=== PATIENT | male | born 1970 | race African-American/Black ===

== ENCOUNTER 2021-02-07 10:58 | Inpatient (IN) | payer OTHER ==
[2021-02-07 12:09] VITALS: BMI 29.1
[2021-02-07] MEDS ORDERED: ONDANSETRON *ODT* 4 MG TABLET SL PRN (14:22)
[2021-02-07] MEDS ORDERED: MAGNESIUM CITRATE 300 ML BOTTLE PO PRN (14:22)
[2021-02-07] MEDS ORDERED: ACETAMINOPHEN 325 MG TABLET (FP) PO PRN (14:22)
[2021-02-07] MEDS ORDERED: MENTHOL/PHENOL 1 EACH UD MM PRN (14:22)
[2021-02-07] MEDS ORDERED: IBUPROFEN 400 MG TABLET (FP) PO PRN (14:22)
[2021-02-07] MEDS ORDERED: METHADONE HCL 10 MG TABLET (FOR DETOX USE ONLY) PO ONE (14:22)
[2021-02-07] MEDS ORDERED: NICOTINE POLACRILEX 2 MG GUM BUC PRN (14:22)
[2021-02-07] MEDS ORDERED: BISMUTH SUBSALICYLATE 262 MG/15 ML BTL PO PRN (14:22)
[2021-02-07] MEDS ORDERED: MAG HYDROX/AL HYDROX/SIMETH 30 ML UNIT-DOSE CUP PO PRN (14:22)
[2021-02-07] MEDS ORDERED: NALOXONE (NARCAN) HCL 4 MG/0.1 ML SPRAY NS PRN (14:22)
[2021-02-07] MEDS ORDERED: MAGNESIUM HYDROX 2400MG/30ML ORAL SUSPENSION 30 ML CUP PO PRN (14:22)
[2021-02-07 15:26] LABS: HEMATOCRIT 41.1 % (35.4-49); HEMOGLOBIN 13.6 GM/dL (11.7-16.9); MCH 31.2 pg (25.7-33.7); MCHC 33.1 g/dl (32.0-35.9); MEAN CELL VOLUME 94.3 fl (80-96); MEAN PLT VOLUME 8.7 fl (7.5-11.1); PLATELET COUNT 269 K/MM3 (134-434); RBC 4.35 M/mm3 (4.00-5.60); RDW 13.3 % (11.9-15.9); WHITE BLOOD COUNT 5.7 K/mm3 (4.0-10.0)
[2021-02-07 15:29] LABS: POTASSIUM 3.7 mmol/L (3.5-5.1)
[2021-02-07 15:30] LABS: CALCIUM 9.5 mg/dL (8.5-10.1)
[2021-02-07 15:31] LABS: ALBUMIN 4.2 g/dl (3.4-5.0); BLOOD UREA NITROGEN 18.2 mg/dL (7-18)
[2021-02-07 15:34] LABS: CREATININE 1.4 mg/dL (0.55-1.3)
[2021-02-07 15:36] LABS: BILIRUBIN,TOTAL 0.8 mg/dL (0.2-1); TOT PROT 7.9 g/dl (6.4-8.2)
[2021-02-07] MEDS: METHOCARBAMOL 500 MG TABLET PO PRN (15:39)
[2021-02-07] MEDS: cloNIDine HCL 0.1 MG TABLET PO PRN (15:39)
[2021-02-07] MEDS: PRENATAL VITAMINS W/ FOLIC ACID TABLET (FP) PO SCH (15:41)
[2021-02-07] MEDS: NICOTINE 21 MG/24 HOURS TOPICAL PATCH TD SCH (15:41)
[2021-02-07] MEDS: hydrOXYzine PAMOATE 25 MG CAPSULE (FP) PO SCH ×2 (18:07→22:27)
[2021-02-07] MEDS: MELATONIN 5 MG TABLETS PO SCH (22:27)
[2021-02-07] MEDS: THIAMINE HCL 100 MG TABLET (FP) PO SCH (22:27)
[2021-02-08] MEDS: hydrOXYzine PAMOATE 25 MG CAPSULE (FP) PO SCH ×5 (06:29→22:17)
[2021-02-08] MEDS ORDERED: METHADONE HCL 10 MG TABLET (FOR DETOX USE ONLY) ONE ×2 (08:49→09:54)
[2021-02-08] MEDS ORDERED: METHADONE HCL 5 MG TABLET (FOR DETOX USE ONLY) ONE ×2 (08:50→09:54)
[2021-02-08] MEDS: HYDROCHLOROTHIAZIDE 25 MG TABLET (FP) PO SCH (09:49)
[2021-02-08] MEDS: NIFEdipine E.R 60 MG TABLET PO SCH (09:49)
[2021-02-08] MEDS: ASPIRIN 81 MG CHEWABLE TABLETS PO SCH (09:49)
[2021-02-08] MEDS: NICOTINE 21 MG/24 HOURS TOPICAL PATCH TD SCH (09:49)
[2021-02-08] MEDS: PRENATAL VITAMINS W/ FOLIC ACID TABLET (FP) PO SCH (09:49)
[2021-02-08] MEDS ORDERED: METHADONE (DETOX) 20 MG, METHADONE (DETOX) 5 MG PO ONE (10:00)
[2021-02-08] MEDS: cloNIDine HCL 0.1 MG TABLET PO PRN (17:54)
[2021-02-08] MEDS: THIAMINE HCL 100 MG TABLET (FP) PO SCH (22:17)
[2021-02-08] MEDS: METHOCARBAMOL 500 MG TABLET PO PRN (22:17)
[2021-02-08] MEDS: MELATONIN 5 MG TABLETS PO SCH (22:17)
[2021-02-09] MEDS: hydrOXYzine PAMOATE 25 MG CAPSULE (FP) PO SCH ×5 (05:26→22:20)
[2021-02-09] MEDS ORDERED: METHADONE HCL 10 MG TABLET (FOR DETOX USE ONLY) PO ONE (10:00)
[2021-02-09] MEDS: ASPIRIN 81 MG CHEWABLE TABLETS PO SCH (10:14)
[2021-02-09] MEDS: HYDROCHLOROTHIAZIDE 25 MG TABLET (FP) PO SCH (10:14)
[2021-02-09] MEDS: NIFEdipine E.R 60 MG TABLET PO SCH (10:14)
[2021-02-09] MEDS: NICOTINE 21 MG/24 HOURS TOPICAL PATCH TD SCH (10:17)
[2021-02-09] MEDS: PRENATAL VITAMINS W/ FOLIC ACID TABLET (FP) PO SCH (11:31)
[2021-02-09] MEDS: THIAMINE HCL 100 MG TABLET (FP) PO SCH (22:19)
[2021-02-09] MEDS: MELATONIN 5 MG TABLETS PO SCH (22:20)
[2021-02-09] MEDS: cloNIDine HCL 0.1 MG TABLET PO PRN (22:21)
[2021-02-09] MEDS: METHOCARBAMOL 500 MG TABLET PO PRN (22:21)
[2021-02-10] MEDS: hydrOXYzine PAMOATE 25 MG CAPSULE (FP) PO SCH ×5 (05:57→22:15)
[2021-02-10 07:11] LABS: SARS-CoV-2 NAA Not Detected (Not Detected)
[2021-02-10] MEDS ORDERED: METHADONE HCL 5 MG TABLET (FOR DETOX USE ONLY) ONE (08:29)
[2021-02-10] MEDS ORDERED: METHADONE HCL 10 MG TABLET (FOR DETOX USE ONLY) ONE (08:29)
[2021-02-10] MEDS ORDERED: METHADONE (DETOX) 10 MG, METHADONE (DETOX) 5 MG PO ONE (10:00)
[2021-02-10] MEDS: HYDROCHLOROTHIAZIDE 25 MG TABLET (FP) PO SCH (10:15)
[2021-02-10] MEDS: NICOTINE 21 MG/24 HOURS TOPICAL PATCH TD SCH (10:15)
[2021-02-10] MEDS: ASPIRIN 81 MG CHEWABLE TABLETS PO SCH (10:15)
[2021-02-10] MEDS: NIFEdipine E.R 60 MG TABLET PO SCH (10:15)
[2021-02-10] MEDS: PRENATAL VITAMINS W/ FOLIC ACID TABLET (FP) PO SCH (10:15)
[2021-02-10] MEDS: MELATONIN 5 MG TABLETS PO SCH (22:15)
[2021-02-10] MEDS: THIAMINE HCL 100 MG TABLET (FP) PO SCH (22:15)
[2021-02-10] MEDS: METHOCARBAMOL 500 MG TABLET PO PRN (22:16)
[2021-02-11] MEDS: hydrOXYzine PAMOATE 25 MG CAPSULE (FP) PO SCH ×5 (07:09→21:37)
[2021-02-11] MEDS: PRENATAL VITAMINS W/ FOLIC ACID TABLET (FP) PO SCH (09:51)
[2021-02-11] MEDS: HYDROCHLOROTHIAZIDE 25 MG TABLET (FP) PO SCH (09:51)
[2021-02-11] MEDS: ASPIRIN 81 MG CHEWABLE TABLETS PO SCH (09:51)
[2021-02-11] MEDS: METHOCARBAMOL 500 MG TABLET PO PRN ×2 (09:51→21:37)
[2021-02-11] MEDS: NICOTINE 21 MG/24 HOURS TOPICAL PATCH TD SCH (09:52)
[2021-02-11] MEDS: NIFEdipine E.R 60 MG TABLET PO SCH (09:52)
[2021-02-11] MEDS ORDERED: METHADONE HCL 10 MG TABLET (FOR DETOX USE ONLY) PO ONE (10:00)
[2021-02-11] MEDS: MELATONIN 5 MG TABLETS PO SCH (21:36)
[2021-02-11] MEDS: THIAMINE HCL 100 MG TABLET (FP) PO SCH (21:37)
[2021-02-11] MEDS: ACETAMINOPHEN 325 MG TABLET (FP) PO PRN (21:38)
[2021-02-12] MEDS: hydrOXYzine PAMOATE 25 MG CAPSULE (FP) PO SCH ×3 (05:26→14:16)
[2021-02-12] MEDS ORDERED: METHADONE HCL 5 MG TABLET (FOR DETOX USE ONLY) PO ONE (06:00)
[2021-02-12] MEDS: ACETAMINOPHEN 325 MG TABLET (FP) PO PRN (09:39)
[2021-02-12] MEDS: PRENATAL VITAMINS W/ FOLIC ACID TABLET (FP) PO SCH (10:07)
[2021-02-12] MEDS: HYDROCHLOROTHIAZIDE 25 MG TABLET (FP) PO SCH (10:07)
[2021-02-12] MEDS: NICOTINE 21 MG/24 HOURS TOPICAL PATCH TD SCH (10:07)
[2021-02-12] MEDS: ASPIRIN 81 MG CHEWABLE TABLETS PO SCH (10:07)
[2021-02-12] MEDS: NIFEdipine E.R 60 MG TABLET PO SCH (10:07)
[2021-02-12 12:38] VITALS: BP 130/82; PULSE 62; TEMP 97.1
== END 2021-02-12 14:00 | disposition other institution (70) | DRG 773 ==
LOC: YASAS 10:58 → Y3N 14:14
PROVIDERS: ADMIT Allergy & Immunology; ATTEND Allergy & Immunology
PROC: HZ2ZZZZ Detoxification Services for Substance Abuse Treatment (ICD-10-PCS; principal; 2021-02-07)
DX: F11.23 Opioid dependence with withdrawal (principal); F14.20 Cocaine dependence, uncomplicated; F10.10 Alcohol abuse, uncomplicated; F17.210 Nicotine dependence, cigarettes, uncomplicated; F41.8 Other specified anxiety disorders; F32.9 Major depressive disorder, single episode, unspecified; I10 Essential (primary) hypertension; Z98.890 Other specified postprocedural states
CPT/HCPCS: 36415; 80053; 85027; 86780; 93005; 93010; C9803; J0735; U0003; U0005

== ENCOUNTER 2022-03-08 12:57 | Inpatient (IN) | payer OTHER ==
[2022-03-08 15:36] VITALS: BMI 28.8
[2022-03-08] MEDS ORDERED: DICYCLOMINE HCL 10 MG CAPSULE PO PRN (20:22)
[2022-03-08] MEDS ORDERED: BISMUTH SUBSALICYLATE 524 MG/30 ML PO PRN (20:22)
[2022-03-08] MEDS ORDERED: MAGNESIUM CITRATE 300 ML BOTTLE PO PRN (20:22)
[2022-03-08] MEDS ORDERED: LOPERAMIDE HCL 2 MG CAPSULE PO PRN (20:22)
[2022-03-08] MEDS ORDERED: methaDONE HCL 10 MG TABLET (FOR DETOX USE ONLY) PO ONE (20:22)
[2022-03-08] MEDS ORDERED: ONDANSETRON *ODT* 4 MG TABLET SL PRN (20:22)
[2022-03-08] MEDS ORDERED: cloNIDine HCL 0.1 MG TABLET PO PRN (20:22)
[2022-03-08] MEDS ORDERED: MAGNESIUM HYDROX 2400MG/30ML ORAL SUSPENSION 30 ML CUP PO PRN (20:22)
[2022-03-08] MEDS ORDERED: IBUPROFEN 400 MG TABLET (FP) PO PRN (20:22)
[2022-03-08] MEDS ORDERED: ACETAMINOPHEN 325 MG TABLET (FP) PO PRN ×2 (20:22)
[2022-03-08] MEDS ORDERED: MAG HYDROX/AL HYDROX/SIMETH 30 ML UNIT-DOSE CUP PO PRN (20:22)
[2022-03-08] MEDS ORDERED: hydrOXYzine PAMOATE 25 MG CAPSULE (FP) PO PRN (20:22)
[2022-03-08] MEDS ORDERED: BENZOCAINE/MENTHOL (CHLORASEPTIC ) LOZENGE MM PRN (20:22)
[2022-03-08] MEDS ORDERED: clonazePAM 0.5 MG ODT TABLETS SL PRN (20:24)
[2022-03-08] MEDS ORDERED: NICOTINE POLACRILEX 4 MG GUM BUC PRN (20:24)
[2022-03-08] MEDS ORDERED: MELATONIN 5 MG TABLETS PO PRN (20:24)
[2022-03-08] MEDS: METHOCARBAMOL 500 MG TABLET PO PRN (22:57)
[2022-03-08] MEDS: THIAMINE HCL 100 MG TABLET (FP) PO SCH (22:57)
[2022-03-09] MEDS ORDERED: methaDONE HCL 10 MG TABLET (FOR DETOX USE ONLY) ONE (09:35)
[2022-03-09] MEDS: PRENATAL VITAMINS W/ FOLIC ACID TABLET (FP) PO SCH (10:06)
[2022-03-09] MEDS: ASPIRIN 81 MG CHEWABLE TABLETS PO SCH (10:06)
[2022-03-09] MEDS: HYDROCHLOROTHIAZIDE 25 MG TABLET (FP) PO SCH (10:06)
[2022-03-09] MEDS: NIFEdipine E.R 60 MG TABLET PO SCH (12:20)
[2022-03-09 12:31] LABS: HEMATOCRIT 40.4 % (35.4-49); HEMOGLOBIN 12.9 GM/dL (11.7-16.9); MCH 29.9 pg (25.7-33.7); MCHC 31.8 g/dl (32.0-35.9); MEAN CELL VOLUME 93.9 fl (80-96); MEAN PLT VOLUME 8.4 fl (7.5-11.1); PLATELET COUNT 271 10^3/uL (134-434); RDW 12.7 % (11.9-15.9); WHITE BLOOD COUNT 5.3 K/mm3 (4.0-10.0)
[2022-03-09 13:20] LABS: CALCIUM 8.7 mg/dL (8.5-10.1)
[2022-03-09 13:21] LABS: ALBUMIN 3.2 g/dl (3.4-5.0)
[2022-03-09 13:24] LABS: BLOOD UREA NITROGEN 14.1 mg/dL (7-18)
[2022-03-09 13:25] LABS: BILIRUBIN,TOTAL 0.5 mg/dL (0.2-1)
[2022-03-09] MEDS: THIAMINE HCL 100 MG TABLET (FP) PO SCH (22:32)
[2022-03-10] MEDS ORDERED: methaDONE HCL 10 MG TABLET (FOR DETOX USE ONLY) PO ONE (10:00)
[2022-03-10] MEDS: HYDROCHLOROTHIAZIDE 25 MG TABLET (FP) PO SCH (10:31)
[2022-03-10] MEDS: PRENATAL VITAMINS W/ FOLIC ACID TABLET (FP) PO SCH (10:31)
[2022-03-10] MEDS: ASPIRIN 81 MG CHEWABLE TABLETS PO SCH (10:31)
[2022-03-10] MEDS: NIFEdipine E.R 60 MG TABLET PO SCH (10:31)
[2022-03-10 16:08] LABS: SARS-CoV-2 NAA Not Detected (Not Detected)
[2022-03-10] MEDS: THIAMINE HCL 100 MG TABLET (FP) PO SCH (22:47)
[2022-03-11] MEDS ORDERED: methaDONE HCL 10 MG TABLET (FOR DETOX USE ONLY) ONE (09:16)
[2022-03-11] MEDS: ASPIRIN 81 MG CHEWABLE TABLETS PO SCH (10:20)
[2022-03-11] MEDS: PRENATAL VITAMINS W/ FOLIC ACID TABLET (FP) PO SCH (10:20)
[2022-03-11] MEDS: HYDROCHLOROTHIAZIDE 25 MG TABLET (FP) PO SCH (10:20)
[2022-03-11] MEDS: NIFEdipine E.R 60 MG TABLET PO SCH (10:20)
[2022-03-11] MEDS: THIAMINE HCL 100 MG TABLET (FP) PO SCH (22:00)
[2022-03-11] MEDS: METHOCARBAMOL 500 MG TABLET PO PRN (22:02)
[2022-03-12] MEDS ORDERED: methaDONE HCL 10 MG TABLET (FOR DETOX USE ONLY) PO ONE (10:00)
[2022-03-12] MEDS: PRENATAL VITAMINS W/ FOLIC ACID TABLET (FP) PO SCH (10:30)
[2022-03-12] MEDS: NIFEdipine E.R 60 MG TABLET PO SCH (10:31)
[2022-03-12] MEDS: ASPIRIN 81 MG CHEWABLE TABLETS PO SCH (10:31)
[2022-03-12] MEDS: HYDROCHLOROTHIAZIDE 25 MG TABLET (FP) PO SCH (10:31)
[2022-03-12] MEDS: METHOCARBAMOL 500 MG TABLET PO PRN ×2 (13:15→22:08)
[2022-03-12] MEDS ORDERED: SUVOREXANT 10 MG TABLET PO PRN (22:00)
[2022-03-12] MEDS: THIAMINE HCL 100 MG TABLET (FP) PO SCH (22:08)
[2022-03-13 07:10] VITALS: PULSE 73
[2022-03-13 08:53] VITALS: BP 134/85; TEMP 98.1
[2022-03-13] MEDS: HYDROCHLOROTHIAZIDE 25 MG TABLET (FP) PO SCH (11:29)
[2022-03-13] MEDS: ASPIRIN 81 MG CHEWABLE TABLETS PO SCH (11:29)
[2022-03-13] MEDS: NIFEdipine E.R 60 MG TABLET PO SCH (11:31)
[2022-03-13] MEDS: PRENATAL VITAMINS W/ FOLIC ACID TABLET (FP) PO SCH (11:31)
== END 2022-03-13 09:15 | disposition home or self-care (01) | DRG 773 ==
LOC: YASAS 12:57 → Y3E 15:00 → UNDOADMIN 15:00 → Y3N 17:49
PROVIDERS: ADMIT Allergy & Immunology; ATTEND Allergy & Immunology
PROC: HZ2ZZZZ Detoxification Services for Substance Abuse Treatment (ICD-10-PCS; principal; 2022-03-08)
DX: F11.23 Opioid dependence with withdrawal (principal); F14.20 Cocaine dependence, uncomplicated; F12.20 Cannabis dependence, uncomplicated; F17.210 Nicotine dependence, cigarettes, uncomplicated; F41.9 Anxiety disorder, unspecified; F32.A Depression, unspecified; G47.00 Insomnia, unspecified; M25.562 Pain in left knee; Z28.310 Unvaccinated for COVID-19; Z28.20 Immunization not carried out because of patient decision for unspecified reason
CPT/HCPCS: 36415; 80053; 85027; 86780; 93005; 93010; C9803-CS; U0003; U0005

== ENCOUNTER 2023-03-06 10:41 | Inpatient (IN) | payer OTHER ==
[2023-03-06 11:31] VITALS: BMI 29.7
[2023-03-06] MEDS ORDERED: hydrOXYzine PAMOATE 25 MG CAPSULE (FP) PO PRN (13:02)
[2023-03-06] MEDS ORDERED: DICYCLOMINE HCL 10 MG CAPSULE PO PRN (13:02)
[2023-03-06] MEDS ORDERED: NALOXONE HCL 0.4 MG/ML VIAL IM PRN (13:02)
[2023-03-06] MEDS ORDERED: guaiFENesin 600 MG TABLET.ER (FP) PO PRN (13:02)
[2023-03-06] MEDS ORDERED: BISMUTH SUBSALICYLATE 524 MG/30 ML PO PRN (13:02)
[2023-03-06] MEDS ORDERED: ACETAMINOPHEN 325 MG TABLET (FP) PO PRN (13:02)
[2023-03-06] MEDS ORDERED: LOPERAMIDE HCL 2 MG CAPSULE PO PRN (13:02)
[2023-03-06] MEDS ORDERED: MAG HYDROX/AL HYDROX/SIMETH 30 ML UNIT-DOSE CUP PO PRN (13:02)
[2023-03-06] MEDS ORDERED: POLYETHYLENE GLYCOL (HEALTHYLAX) 3350 17 GM PACKET PO PRN (13:02)
[2023-03-06] MEDS ORDERED: ONDANSETRON *ODT* 4 MG TABLET SL PRN (13:02)
[2023-03-06] MEDS ORDERED: IBUPROFEN 400 MG TABLET (FP) PO PRN (13:02)
[2023-03-06] MEDS ORDERED: NALOXONE HCL (KLOXXADO) 8 MG SPRAY NS PRN (13:02)
[2023-03-06] MEDS ORDERED: BENZONATATE 200 MG CAPSULE PO PRN (13:02)
[2023-03-06] MEDS ORDERED: IBUPROFEN 600 MG TABLET (FP) PO PRN (13:02)
[2023-03-06] MEDS ORDERED: MAGNESIUM HYDROX 2400MG/30ML ORAL SUSPENSION 30 ML CUP PO PRN (13:02)
[2023-03-06] MEDS ORDERED: NICOTINE POLACRILEX 2 MG GUM BUC PRN (13:02)
[2023-03-06] MEDS ORDERED: BENZOCAINE/MENTHOL (CHLORASEPTIC ) LOZENGE MM PRN (13:02)
[2023-03-06] MEDS ORDERED: hydrOXYzine PAMOATE 25 MG CAPSULE (FP) PO ONE (13:25)
[2023-03-06] MEDS ORDERED: methaDONE HCL 10 MG TABLET (FOR DETOX USE ONLY) PO ONE (13:27)
[2023-03-06] MEDS: MELATONIN 5 MG TABLETS PO SCH (22:30)
[2023-03-06] MEDS: THIAMINE HCL 100 MG TABLET (FP) PO SCH (22:30)
[2023-03-07] MEDS: PRENATAL VITAMINS W/ FOLIC ACID TABLET (FP) PO SCH (10:25)
[2023-03-07] MEDS: NICOTINE 7 MG/24 HOURS TOPICAL PATCH TD SCH (10:28)
[2023-03-07] MEDS: BACITRACIN 0.9 GM PACKET TP SCH (10:28)
[2023-03-07 10:59] LABS: HEMATOCRIT 38.2 % (35.4-49); HEMOGLOBIN 12.6 GM/dL (11.7-16.9); MCH 30.9 pg (25.7-33.7); MEAN CELL VOLUME 93.6 fl (80-96); MEAN PLT VOLUME 8.7 fl (7.5-11.1); PLATELET COUNT 227 10^3/uL (134-434); RBC 4.08 M/mm3 (4.00-5.60); RDW 13.2 % (11.9-15.9); WHITE BLOOD COUNT 4.2 K/mm3 (4.0-10.0)
[2023-03-07 11:01] LABS: POTASSIUM 4.5 mmol/L (3.5-5.1)
[2023-03-07 11:04] LABS: ALBUMIN 3.2 g/dl (3.4-5.0); CALCIUM 8.6 mg/dL (8.5-10.1)
[2023-03-07 11:05] LABS: BLOOD UREA NITROGEN 11.9 mg/dL (7-18)
[2023-03-07 11:07] LABS: CREATININE 0.8 mg/dL (0.55-1.3)
[2023-03-07 11:09] LABS: BILIRUBIN,TOTAL 0.7 mg/dL (0.2-1); TOT PROT 6.1 g/dl (6.4-8.2)
[2023-03-07] MEDS: NIFEdipine E.R. 30 MG TABLET PO SCH (11:42)
[2023-03-07] MEDS: HYDROCHLOROTHIAZIDE 25 MG TABLET (FP) PO SCH (11:42)
[2023-03-07] MEDS: ASPIRIN 81 MG CHEWABLE TABLETS PO SCH (11:42)
[2023-03-07] MEDS: cloNIDine HCL 0.1 MG TABLET PO PRN (18:00)
[2023-03-07] MEDS: MELATONIN 5 MG TABLETS PO SCH (22:43)
[2023-03-07] MEDS: THIAMINE HCL 100 MG TABLET (FP) PO SCH (22:44)
[2023-03-08] MEDS ORDERED: methaDONE HCL 10 MG TABLET (FOR DETOX USE ONLY) PO ONE (10:00)
[2023-03-08] MEDS: ASPIRIN 81 MG CHEWABLE TABLETS PO SCH (10:17)
[2023-03-08] MEDS: BACITRACIN 0.9 GM PACKET TP SCH (10:17)
[2023-03-08] MEDS: PRENATAL VITAMINS W/ FOLIC ACID TABLET (FP) PO SCH (10:17)
[2023-03-08] MEDS: NIFEdipine E.R. 30 MG TABLET PO SCH (10:18)
[2023-03-08] MEDS: HYDROCHLOROTHIAZIDE 25 MG TABLET (FP) PO SCH (10:19)
[2023-03-08] MEDS: NICOTINE 7 MG/24 HOURS TOPICAL PATCH TD SCH (10:20)
[2023-03-08] MEDS: cloNIDine HCL 0.1 MG TABLET PO PRN ×2 (17:59→22:38)
[2023-03-08] MEDS: METHOCARBAMOL 500 MG TABLET PO PRN (22:37)
[2023-03-08] MEDS: THIAMINE HCL 100 MG TABLET (FP) PO SCH (22:37)
[2023-03-08] MEDS: MELATONIN 5 MG TABLETS PO SCH (22:37)
[2023-03-09] MEDS: ASPIRIN 81 MG CHEWABLE TABLETS PO SCH (10:26)
[2023-03-09] MEDS: PRENATAL VITAMINS W/ FOLIC ACID TABLET (FP) PO SCH (10:26)
[2023-03-09] MEDS: NIFEdipine E.R. 30 MG TABLET PO SCH (10:26)
[2023-03-09] MEDS: HYDROCHLOROTHIAZIDE 25 MG TABLET (FP) PO SCH (10:26)
[2023-03-09] MEDS: BACITRACIN 0.9 GM PACKET TP SCH (10:27)
[2023-03-09] MEDS: NICOTINE 7 MG/24 HOURS TOPICAL PATCH TD SCH (10:30)
[2023-03-09] MEDS ORDERED: cloNIDine HCL 0.1 MG TABLET PO ONE (21:13)
[2023-03-09] MEDS: THIAMINE HCL 100 MG TABLET (FP) PO SCH (21:22)
[2023-03-09] MEDS: METHOCARBAMOL 500 MG TABLET PO PRN (21:22)
[2023-03-09] MEDS: MELATONIN 5 MG TABLETS PO SCH (21:22)
[2023-03-10] MEDS ORDERED: methaDONE HCL 10 MG TABLET (FOR DETOX USE ONLY) PO ONE (10:00)
[2023-03-10] MEDS: PRENATAL VITAMINS W/ FOLIC ACID TABLET (FP) PO SCH (10:01)
[2023-03-10] MEDS: HYDROCHLOROTHIAZIDE 25 MG TABLET (FP) PO SCH (10:02)
[2023-03-10] MEDS: NIFEdipine E.R. 30 MG TABLET PO SCH (10:02)
[2023-03-10] MEDS: ASPIRIN 81 MG CHEWABLE TABLETS PO SCH (10:05)
[2023-03-10] MEDS: NICOTINE 7 MG/24 HOURS TOPICAL PATCH TD SCH (10:06)
[2023-03-10] MEDS: BACITRACIN 0.9 GM PACKET TP SCH (10:06)
[2023-03-10] MEDS: MELATONIN 5 MG TABLETS PO SCH (22:03)
[2023-03-10] MEDS: METHOCARBAMOL 500 MG TABLET PO PRN (22:03)
[2023-03-10] MEDS: THIAMINE HCL 100 MG TABLET (FP) PO SCH (22:03)
[2023-03-11] MEDS: HYDROCHLOROTHIAZIDE 25 MG TABLET (FP) PO SCH (10:42)
[2023-03-11] MEDS: ASPIRIN 81 MG CHEWABLE TABLETS PO SCH (10:42)
[2023-03-11] MEDS: BACITRACIN 0.9 GM PACKET TP SCH (10:43)
[2023-03-11] MEDS: NICOTINE 7 MG/24 HOURS TOPICAL PATCH TD SCH (10:43)
[2023-03-11] MEDS: PRENATAL VITAMINS W/ FOLIC ACID TABLET (FP) PO SCH (10:43)
[2023-03-11] MEDS: NIFEdipine E.R. 30 MG TABLET PO SCH (10:43)
[2023-03-11 13:40] VITALS: BP 138/83; PULSE 85; RESP 20; TEMP 98
== END 2023-03-11 14:17 | disposition other institution (70) | DRG 773 ==
LOC: YASAS 10:41 → Y3N 13:12
PROVIDERS: ADMIT Allergy & Immunology; ATTEND Surgery
PROC: HZ2ZZZZ Detoxification Services for Substance Abuse Treatment (ICD-10-PCS; principal; 2023-03-06)
DX: F11.23 Opioid dependence with withdrawal (principal); F14.20 Cocaine dependence, uncomplicated; F17.210 Nicotine dependence, cigarettes, uncomplicated; F41.9 Anxiety disorder, unspecified; F32.A Depression, unspecified; I10 Essential (primary) hypertension; Z28.310 Unvaccinated for COVID-19; Z28.21 Immunization not carried out because of patient refusal
CPT/HCPCS: 36415; 80053; 85027; 86780; C9803-CS; U0003; U0005

== ENCOUNTER 2024-10-22 12:28 | Inpatient (IN) | payer OTHER ==
[2024-10-22 14:03] VITALS: BMI 27.7
[2024-10-22] MEDS ORDERED: ACETAMINOPHEN 325 MG TABLET (FP) PO PRN (15:46)
[2024-10-22] MEDS ORDERED: DICYCLOMINE HCL 10 MG CAPSULE PO PRN (15:46)
[2024-10-22] MEDS ORDERED: BISMUTH SUBSALICYLATE 524 MG/30 ML PO PRN (15:46)
[2024-10-22] MEDS ORDERED: ONDANSETRON *ODT* 4 MG TABLET SL PRN (15:46)
[2024-10-22] MEDS ORDERED: IBUPROFEN 600 MG TABLET (FP) PO PRN (15:46)
[2024-10-22] MEDS ORDERED: POLYETHYLENE GLYCOL (HEALTHYLAX) 3350 17 GM PACKET PO PRN (15:46)
[2024-10-22] MEDS ORDERED: MAG HYDROX/AL HYDROX/SIMETH 30 ML UNIT-DOSE CUP PO PRN (15:46)
[2024-10-22] MEDS ORDERED: NALOXONE (NARCAN) HCL 4 MG/0.1 ML SPRAY NS PRN (15:46)
[2024-10-22] MEDS ORDERED: guaiFENesin 600 MG TABLET.ER (FP) PO PRN (15:46)
[2024-10-22] MEDS ORDERED: BENZOCAINE/MENTHOL (CHLORASEPTIC ) LOZENGE MM PRN (15:46)
[2024-10-22] MEDS ORDERED: LOPERAMIDE HCL 2 MG CAPSULE PO PRN (15:46)
[2024-10-22] MEDS ORDERED: IBUPROFEN 400 MG TABLET (FP) PO PRN (15:46)
[2024-10-22] MEDS ORDERED: BENZONATATE 200 MG CAPSULE PO PRN (15:46)
[2024-10-22] MEDS ORDERED: MAGNESIUM HYDROX 2400MG/30ML ORAL SUSPENSION 30 ML CUP PO PRN (15:46)
[2024-10-22] MEDS: methaDONE HCL 10 MG TABLET (FOR DETOX USE ONLY) PO ONE (17:02)
[2024-10-22] MEDS: methaDONE HCL 10 MG TABLET (FOR DETOX USE ONLY) PO PRN (20:00)
[2024-10-22] MEDS: METHOCARBAMOL 500 MG TABLET PO PRN (20:01)
[2024-10-22] MEDS: hydrOXYzine PAMOATE 25 MG CAPSULE (FP) PO PRN (22:27)
[2024-10-22] MEDS: MELATONIN 5 MG TABLETS PO SCH (22:27)
[2024-10-22] MEDS: cloNIDine HCL 0.1 MG TABLET PO PRN (22:27)
[2024-10-22] MEDS: THIAMINE 100 MG TABLET PO SCH (22:27)
[2024-10-23] MEDS: NICOTINE 21 MG/24 HOURS TOPICAL PATCH TD SCH (10:01)
[2024-10-23] MEDS: FAMOTIDINE 20 MG TABLET PO SCH (10:04)
[2024-10-23] MEDS: ASPIRIN 81 MG CHEWABLE TABLETS PO SCH (10:04)
[2024-10-23] MEDS: HYDROCHLOROTHIAZIDE 25 MG TABLET (FP) PO SCH (10:04)
[2024-10-23] MEDS: PRENATAL VITAMINS W/ FOLIC ACID TABLET (FP) PO SCH (10:04)
[2024-10-23] MEDS: NIFEdipine E.R 60 MG TABLET PO SCH (10:04)
[2024-10-23 13:52] LABS: HEMATOCRIT 36.7 % (35.4-49); HEMOGLOBIN 11.5 GM/dL (11.7-16.9); MCH 30.6 pg (25.7-33.7); MCHC 31.4 g/dl (32.0-35.9); MEAN CELL VOLUME 97.5 fl (80-96); MEAN PLT VOLUME 8.4 fl (7.5-11.1); PLATELET COUNT 216 10^3/uL (134-434); RBC 3.77 M/mm3 (4.00-5.60); RDW 15.2 % (11.9-15.9); WHITE BLOOD COUNT 6.1 K/mm3 (4.0-10.0)
[2024-10-23 14:02] LABS: CHLORIDE 113 mmol/L (98-107); POTASSIUM 4.2 mmol/L (3.5-5.1); SODIUM 141 mmol/L (136-145)
[2024-10-23 14:04] LABS: CALCIUM 8.3 mg/dL (8.5-10.1)
[2024-10-23 14:05] LABS: ALBUMIN 2.7 g/dl (3.4-5.0); ANION GAP 3 mmol/L (4-13); BLOOD UREA NITROGEN 16.9 mg/dL (7-18); CO2 25 mmol/L (21-32); GLUCOSE,RANDOM 94 mg/dL (74-106)
[2024-10-23 14:08] LABS: SGOT/AST 23 U/L (15-37); SGPT/ALT 27 U/L (13-61)
[2024-10-23 14:09] LABS: BILIRUBIN,TOTAL 0.4 mg/dL (0.2-1); TOT PROT 5.2 g/dl (6.4-8.2)
[2024-10-23 14:10] LABS: ALK PHOS 76 U/L (45-117)
[2024-10-23] MEDS: SUVOREXANT 10 MG TABLET PO PRN (22:19)
[2024-10-24] MEDS: methaDONE HCL 10 MG TABLET (FOR DETOX USE ONLY) PO ONE (10:14)
[2024-10-24] MEDS: LOSARTAN POTASSIUM 50 MG TABLET PO ONE (13:55)
[2024-10-26] MEDS: methaDONE HCL 10 MG TABLET (FOR DETOX USE ONLY) PO ONE (09:31)
[2024-10-26] MEDS: NALOXONE (NYS OPIOID OVERDOSE PROGRAM) 4 MG/0.1 ML SPRAY NS SCH (14:49)
[2024-10-26 17:24] VITALS: TEMP 97.6
[2024-10-26 20:56] VITALS: BP 134/79; PULSE 93; RESP 18
== END 2024-10-27 05:42 | disposition home or self-care (01) | DRG 773 ==
LOC: YASAS 12:28 → Y6N 16:03
PROVIDERS: ADMIT Surgery; ATTEND Surgery
PROC: HZ2ZZZZ Detoxification Services for Substance Abuse Treatment (ICD-10-PCS; principal; 2024-10-22)
DX: F11.23 Opioid dependence with withdrawal (principal); F14.20 Cocaine dependence, uncomplicated; F12.20 Cannabis dependence, uncomplicated; F17.210 Nicotine dependence, cigarettes, uncomplicated; F19.280 Other psychoactive substance dependence with psychoactive substance-induced anxiety disorder; F19.282 Other psychoactive substance dependence with psychoactive substance-induced sleep disorder; F41.9 Anxiety disorder, unspecified; F32.A Depression, unspecified; I10 Essential (primary) hypertension; K21.9 Gastro-esophageal reflux disease without esophagitis
CPT/HCPCS: 36415; 80053; 80307; 85027; 86780; 93005; 93010